=== PATIENT | female | born 1950 | race Caucasian/White ===

== ENCOUNTER 2021-07-24 13:33 | Emergency (ER) | payer MEDICARE, SELFPAY ==
--- NOTE | ~2021-07-24 | XR_ITS ---
EXAMINATION: XR chest 1V portable DATE: 07/24/2021 16:22 INDICATION: Hypoxia. Dyspnea. COVID-19 pneumonia. TECHNIQUE: A single frontal view of the chest was obtained. COMPARISON: None. FINDINGS: There are airspace opacities in all lung zones bilaterally with relative sparing of the roseanna g apices. No pleural effusion or pneumothorax. The heart size is normal. There is a left shoulder art hroplasty. IMPRESSION: 1. Diffuse lung disease, consistent with COVID-19 pneumonia. Reviewed, dictated and finalized at location A.
[2021-07-24 13:33] VITALS: BP 101/44; PULSE 56; PULSE 60; RESP 14; TEMP 36.2; O2SAT 89
--- NOTE | 2021-07-24 13:40 | WPDEDEXPGENP ---
HPI - General Ped General Stated complaint: ambulance Time Seen by Provider: 07/24/21 13:39 Source: patient Mode of arrival: EMS Limitations: no limitations
--- NOTE | 2021-07-24 13:59 | ECG_ITS ---
Measurements Intervals Willis Rate: 60 P: 5 VT: 145 QRS: -9 QRSD: 89 T: -13 QT: 419 QTc: 421 Interpretive Statements SINUS RHYTHM BORDERLINE T WAVE ABNORMALITY- ANTEROLAT/INF LEADS BASELINE ARTIFACT- I, II, III, AVR, AVL, AVF, V1, V3, V5-V6 BORDERLINE ECG Electronically Signed On 07-26-2021 7:11:35 CDT by Lior Hinojosa D.O.
--- NOTE | 2021-07-24 14:05 | ED.SOB ---
HPI - SOB/Dyspnea General Chief Complaint: Shortness of Breath/Dyspnea Stated Complaint: ambulance Time Seen by Provider: 07/24/21 13:39 Source: patient Mode of arrival: EMS Limitations: no limitations History of Present Illness HPI Narrative: 71-year-old woman with a history of type 2 diabetes, hypertension and who was 8 days ago brought to the emergency department by EMS after her family found her to be less active than usual and have a pulse ox in the upper 80s. She states that she has missed a few days of her medications and has not been eating or drinking well. She has had some mild dyspnea but no fever, chills, cough, cold symptoms, sore throat, vomiting, diarrhea, abdominal pain or dysuria. She denies suicidal ideation. Her family is very concerned about her. MD elicited complaint: shortness of breath Onset (ago): day(s) Context: other (recently ) Timing: constant Severity: moderate Exacerbating factors: nothing Relieving factors: nothing Treatment prior to arrival: none Related Data Home oxygen amount: none Home Medications Medication Instructions Recorded Confirmed hydrochlorothiazide 12.5 mg PO DAILY 07/24/21 07/24/21 lisinopril 40 mg PO DAILY 07/24/21 07/24/21 metformin 2,000 mg PO DAILY 07/24/21 07/24/21 propranolol 40 mg PO Q12H 07/24/21 07/24/21 rosuvastatin 5 mg PO DAILY 07/24/21 07/24/21 Allergies Allergy/AdvReac Type Severity Reaction Status Date / Time No Known Allergies Allergy Verified 07/24/21 13:59 Review of Systems Review of Systems: All systems reviewed & are unremarkable except as noted in HPI and below Constitutional: Constitutional: Denies chills and Denies fever(s) Eyes: Eyes: Denies change in vision and Denies photophobia ENT: Denies dysphagia, Denies nasal congestion and Denies sore throat Cardiovascular: Cardiovascular: Denies chest pain and Denies radiating jaw, neck or arm pain Respiratory: Respiratory: Denies cough, Denies dyspnea and Denies wheezing Gastrointestinal: Gastrointestinal: Denies abdominal pain, Denies diarrhea, Denies nausea and Denies vomiting Genitourinary: Genitourinary: Denies nocturia and Denies dysuria Musculoskeletal: Musculoskeletal: Denies back pain, Denies arthralgias and Denies joint swelling Integumentary/Breasts: Skin/Breast: Denies pruritus, Denies erythema and Denies rash Neurologic: Denies vertigo, Denies dizziness, Denies syncope and Denies focal weakness Psychiatric: Psychiatric: Denies homicidal ideation and Denies suicidal ideation Endocrine: Endocrine: Denies fatigue, Denies polydipsia and Denies polyuria Hematologic/Lymphatic: Hematologic/Lymphatic: Denies easy bleeding and Denies easy bruising Allergic/Immunologic: Allergic/Immunologic: Denies lip swelling and Denies throat swelling [facility] Past Medical History Medical History (Updated 07/24/21 @ 17:40 by Miguel Hinson MD) HTN (hypertension) Type 2 diabetes mellitus Surgical History Surgical History (Updated 07/24/21 @ 15:21 by Miguel Hinson MD) H/O shoulder surgery H/O: hysterectomy History of nephrectomy Social History Social History (Updated 07/24/21 @ 14:10 by Miguel Hinson MD) Smoking status: Never smoker Alcohol intake: never Substance use: never Living arrangements: with family Exam Const: General: healthy appearing, no acute distress and alert Orientation/consciousness: patient oriented x3 Limitations: no limitations HENMT: Head: normal to inspection Ears: external ears normal, TM's normal bilaterally and EAC's normal General nose exam: Normal nares present Face and sinus: normal facial exam Mouth: Yes moist mucous membranes Throat: posterior oropharynx normal Eyes: Conjunctivae: conjunctivae normal Pupils: Equal, round and reactive pupils present EOM: EOMs intact bilaterally Resp: Effort & Inspection: normal respiratory effort and not labored Auscultation: clear to auscultation bilaterally, no rale
[2021-07-24 14:08] VITALS: O2SAT 91
[2021-07-24 14:27] LABS: Basophils Absolute Auto 0.01 K/mm3 (0.00-0.10); Basophils Percent Auto 0.2 % (0.0-1.0); Eosinophils Absolute Auto 0.05 K/mm3 (0.02-0.50); Eosinophils Percent Auto 0.8 % (1.0-6.0); Hematocrit 35.1 % (35.0-42.0); Hemoglobin 11.7 g/dL (11.7-13.8); Immature Granulocyte Absolute 0.03 K/mm3 (0.00-0.00); Immature Granulocyte Percent A 0.5 % (0.0-0.0); Lymphocytes Absolute Auto 1.03 K/mm3 (1.10-4.50); Lymphocytes Percent Auto 15.5 % (18.0-42.0); Mean Corpuscular HGB Conc 33.3 g/dL (32.0-36.0); Mean Corpuscular Hemoglobin 31.9 pg (27.0-31.0); Mean Corpuscular Volume 95.6 fL (78.0-102.0); Mean Platelet Volume 10.1 fl (9.2-11.8); Monocytes Absolute Auto 0.24 K/mm3 (0.10-0.90); Monocytes Percent Auto 3.6 % (2.0-11.0); Neutrophils Absolute Auto 5.3 K/mm3 (1.7-7.2); Neutrophils Percent Auto 79.4 % (50.0-70.0); Platelet Count Result 192 K/mm3 (150-420); Red Blood Count 3.67 M/mm3 (4.20-5.40); White Blood Count 6.7 K/mm3 (4.8-10.8)
[2021-07-24 14:52] LABS: Lactic Acid Reflex 2.4 mmol/L (0.4-2.0)
[2021-07-24 14:55] LABS: INR 1.1; Partial Thromboplastin Time 26.2 SEC (23.90-30.70); Prothrombin Time 11.6 Seconds (9.50-12.10)
[2021-07-24 14:56] LABS: D Dimer 16.51 mg/L (0.19-0.50)
[2021-07-24 15:00] LABS: Alanine Aminotransferase 31 U/L (14-59); Albumin Level 2.4 g/dL (3.4-5.0); Alkaline Phosphatase 55 U/L (46-116); Anion Gap 13 mmol/L (8-16); Aspartate Amino Transferase 33 U/L (15-37); Bilirubin,Total 0.6 mg/dL (0.00-1.00); Blood Urea Nitrogen 64 mg/dL (7-18); Calcium 10.2 mg/dL (8.5-10.1); Carbon Dioxide 24 mmol/L (21-32); Chloride 107 mmol/L (98-108); Estimated CRCL calculation 24 ml/min; Estimated Glomerular Filt Rate 25; Glucose 139 mg/dL (70-99); Magnesium 2.2 mg/dL (1.8-2.4); NT Pro B Type Natriuretic Pept 422 pg/mL (0-125); Osmolality Calculated 318 mOsm/kg (285-295); Potassium 4.3 mmol/L (3.5-5.1); Sodium 144 mmol/L (136-145); Total Protein 7.3 g/dL (6.4-8.2); Troponin I 12.3 ng/L (0.00-60.4)
[2021-07-24 15:06] LABS: CRP > 10.6 mg/dL (0.0-0.9)
[2021-07-24 15:07] LABS: SARS-CoV-2 Ag Positive (Negative)
[2021-07-24 15:10] LABS: Free T4 Free Thyroxine Reflex 1.86 ng/dL (0.76-1.46); Thyroid Stimulating Hormone Reflex 0.02 u/IU/mL (0.36-3.74)
[2021-07-24 15:13] LABS: Add Urine Microscopic? YES; Appearance Urine Clear (Clear); Bilirubin Urine Negative (Negative); Blood Urine Negative (Negative); Color Urine Yellow (Yellow); Glucose Urine UA Negative (Negative); Ketones Urine Negative (Negative); Leukocyte Esterase Ur Negative LEU/UL (Negative); Nitrate Urine Positive (Negative); Protein Urine 1+ (Negative); Urobilinogen Urine 0.2 mg/dL (0.2-1.0); pH Urine 5.5 (5.0-8.0)
[2021-07-24] MEDS: ENOXAPARIN 100 MG/ML SYRINGE 80 MG SUB-Q (15:15)
[2021-07-24 15:19] LABS: Bacteria Urine 3+ /hpf; RBC Urine 0-2 /hpf (0-2); Squamous Epithelial Cell Urine None seen /hpf (Few); WBC Urine 0-3 /hpf (0-3)
--- NOTE | 2021-07-24 16:15 | PC.NURSE ---
[facility], LEFT VOICEMAIL FOR TRANSFER. NO RETURN CALL. RN [facility] TO [facility] FOR [facility]SFER AT 1605. NO ANSWER/STRAIGHT TO VOICEMAIL. ERP DIRECTED RN TO CALL [facility] TRANSFER LINE. AWAITING CALL BACK.
[2021-07-24 17:27] LABS: Reflex Lactic Acid Yes or No Add Lactic
[2021-07-24] MEDS: SODIUM CHLORIDE 0.9% IV 1,000 ML 500 ML IV CONT (17:27)
[2021-07-24] MEDS: DEXAMETHASONE SOD PHOS INJ 4 MG/ML VIAL 8 MG IV PUSH (17:27)
--- NOTE | 2021-07-24 17:28 | PC.NURSE ---
DR. MENDIETA FROM [facility] CONTACTED ERP AT THIS TIME. PT ACCEPTED TO [facility] AWAITING BED PLACEMENT.
[2021-07-24 17:42] VITALS: BP 129/87; PULSE 71; RESP 20; TEMP 36.7; O2SAT 90
[2021-07-24 18:24] LABS: Lactic Acid 1.9 mmol/L (0.4-2.0)
[2021-07-24 18:39] VITALS: BP 131/66; PULSE 74; RESP 20; TEMP 36.2; O2SAT 94
--- NOTE | 2021-07-24 18:44 | PC.NURSE ---
180 RN CALLED REPORT TO ACCEPTING RN, MAGDIEL, AT [facility]. [facility] TRANSFER REQUEST AT [phone] [address] ARRIVAL. DEPART AT 1839. PT'S DAUGHTER, CURT, CONTACTED AT 1840 TO PROVIDE THE DETAILS OF TRANSFER PER PATIENT REQUEST.
== END 2021-07-24 18:40 | disposition short-term general hospital (02) ==
PROVIDERS: Emergency Provider Emergency Medicine
DX: U07.1 COVID-19 (principal); J12.82 Pneumonia due to coronavirus disease 2019; R79.1 Abnormal coagulation profile; E86.0 Dehydration; N17.9 Acute kidney failure, unspecified; J96.01 Acute respiratory failure with hypoxia; I10 Essential (primary) hypertension; E11.9 Type 2 diabetes mellitus without complications; Z79.899 Other long term (current) drug therapy
CPT/HCPCS: 36415; 71045; 80053; 81001; 83605; 83735; 83880; 84439; 84443; 84484; 85025; 85380; 85610; 85730; 86140; 87040; 87077; 87086; 87088; 87186; 87426; 93005; 96361; 96365; 96372; 96375; 99285; C9803; J0696; J1100; J1650; J7030

== ENCOUNTER 2021-08-27 17:17 | Emergency (ER) | payer MEDICARE, SELFPAY ==
[2021-08-27 17:34] VITALS: BP 116/66; PULSE 77; RESP 18; TEMP 37; O2SAT 99
--- NOTE | 2021-08-27 18:05 | ED.EXTPRO ---
HPI - Extremity Problem General Chief complaint: Extremity Problem,Nontraumatic Stated complaint: left foot and ankle swelling Source: patient and family Mode of arrival: ambulatory History of Present Illness HPI Narrative: This is 71-year-old female that presents with some left lower extremity swelling with some no evidence of of DVT, there is no calf tenderness no warmth or tenderness in the left lower extremity the patient has been up and walking while at home since discharge the patient was told that she had pulmonary embolism but was not discharged on any blood thinners. Currently no shortness of breath no fever or chills vitals are stable. Complaint: extremity swelling Onset (ago): hour(s) Pain Consistency: constant Location: left Related Data Home Medications Medication Instructions Recorded Confirmed lisinopril 20 mg PO DAILY 07/24/21 08/27/21 metformin 2,000 mg PO DAILY 07/24/21 08/27/21 propranolol 40 mg PO Q12H 07/24/21 08/27/21 rosuvastatin 5 mg PO DAILY 07/24/21 08/27/21 trazodone 50 mg PO HS 08/27/21 08/27/21 Allergies Allergy/AdvReac Type Severity Reaction Status Date / Time No Known Allergies Allergy Verified 07/24/21 13:59 Review of Systems Review of Systems: All systems reviewed & are unremarkable except as noted in HPI and below Eyes: Eyes: Reports as per HPI ENT: Reports system reviewed and no additional complaints, except as documented PMF Past Medical History Medical History HTN (hypertension) Type 2 diabetes mellitus Surgical History Surgical History H/O shoulder surgery H/O: hysterectomy History of nephrectomy Social History Social History Smoking status: Never smoker Alcohol intake: never Substance use: never Exam Const: General: no acute distress and alert Orientation/consciousness: patient oriented x3 Limitations: altered mental status HENMT: Head: normal to inspection Eyes: Conjunctivae: conjunctivae normal Pupils: Equal, round and reactive pupils present Neck: Neck: normal visual inspection, no lymphadenopathy and no meningeal signs Chest: Chest palpation & inspection: normal inspection of the chest Resp: Effort & Inspection: normal respiratory effort Auscultation: clear to auscultation bilaterally Cardio: Rate: regular rate Rhythm: regular rhythm GI: Percussion: Yes normal to percussion Urinary Catheter: Urinary Catheter: patent and draining Skin: General skin exam: normal color Rashes: no rashes Extrem: Other: Minor lower extremity edema with no calf tenderness no warmth or tenderness in the calf region has good range of motion with no injuries Psych: Mental Status: mental status grossly normal Course Course Emergency Course: patient reassured and will be sending Padma to her pharmacy and advised if she does have symptoms to go to the nearest ER for further evaluation and treatment. Vital Signs Vital signs: Vital Signs Temperature 37.0 C 08/27/21 17:34 Pulse Rate 77 08/27/21 17:34 Respiratory Rate 18 08/27/21 17:34 Blood Pressure 116/66 08/27/21 17:34 Pulse Oximetry 99 08/27/21 17:34 Temperature 37.0 C 08/27/21 17:34 Pulse Rate 77 08/27/21 17:34 Respiratory Rate 18 08/27/21 17:34 Blood Pressure 116/66 08/27/21 17:34 Pulse Oximetry 99 08/27/21 17:34 Critical Care Time Critical Care Time Critical Care Time: No Discharge Plan Discharge Clinical Impression: Deep vein thrombosis of lower extremity Qualifiers: Affected thrombotic vein of extremity: unspecified vein of extremity Chronicity: unspecified Laterality: left Qualified Code(s): I82.402 - Acute embolism and thrombosis of unspecified deep veins of left lower extremity Patient Disposition: Home, Self-Care Condition: Stable Instructions: Antibiotic Form, De
== END 2021-08-27 18:23 | disposition home or self-care (01) ==
PROVIDERS: Emergency Provider Emergency Medicine; PCP Internal Medicine
DX: I82.402 Acute embolism and thrombosis of unspecified deep veins of left lower extremity (principal); I10 Essential (primary) hypertension; E11.9 Type 2 diabetes mellitus without complications
CPT/HCPCS: 99283